=== PATIENT | female | born 1975 | race Caucasian/White ===

== ENCOUNTER 2022-10-30 10:55 | Outpatient (CLI) | payer OTHER, SELFPAY ==
--- NOTE | 2022-10-30 08:28 | W.ANESCHARGE ---
Anesthesia Charges Start Date/Time Anesthesia Start Date: 10/30/22 Anesthesia Start Time: 11:48 Stop Date/Time Anesthesia Stop Date: 10/30/22 Anesthesia Stop Time: 12:25
--- OUTSIDE RECORDS SUMMARY | 2022-10-30 10:59 | XMS_ITS ---
Author Name Khurramannette Robbie Address [address] [place] [address] Organization [facility] - Primary Address [address] [place] [address] Care Team Providers Care Office Workforce Planner Name Role Phone Robbie Mcfarland Unavailable [phone] PROBLEMS Type Condition ICD9-CM Code XAT40-BR Code Onset Dates Condition Status SNOMED Code Problem Post-traumatic stress disorder, chronic F43.12 Active 86941445 Problem Cervicalgia M54.2 Active 77530128 ALLERGIES Substance Reaction Event Type Date Status Ibu stomach upset Drug Allergy Sep, Active ENCOUNTERS Encounter Location Date Diagnosis [facility] [address] [facility] [address] [address] Sep, Post-traumatic stress disorder, chronic F43.12 and Cervicalgia M54.2 [facility] [place] [id number] Oct, Post-traumatic stress disorder, chronic F43.12 and Cervicalgia M54.2 [facility] [address] [place] [address] Apr, [facility] [place] [id number] Feb, Cervicalgia M54.2 and Post-traumatic stress disorder, chronic F43.12 IMMUNIZATIONS No Known Immunizations SOCIAL HISTORY Qualifiers Date Never Smoker REASON FOR REFERRAL FUNCTIONAL STATUS PLAN OF CARE Activity Details Follow Up 1 Year Reason: VITAL SIGNS Height 64 in 2019-02-27 Weight 147 lbs 2019-02-27 BMI 25.23 kg/m2 2019-02-27 MEDICATIONS Medication Instructions Dosage Frequency Start Date End Date Duration Status multivitamin Multiple Vitamins orally once a day 1 cap(s) 24h 30 day(s) Active Sudafed 30 mg orally PRN 1 tab(s) Active calcium carbonate 1250 mg orally once a day 1 tab(s) 24h Active Benadryl 25 mg orally PRN 1 cap(s) Active PROCEDURES No Known procedures RESULTS No Results REASON FOR VISIT Cannabis recert, PTSD, PTSD, PHONE recert, Medical cannabis , wellness check/consult, Insomnia, Anxiety, Bilat shoulders pain Insurance Providers Health Insurance Type Health Plan Insurance Address Health Plan Insurance Phone Health Plan Insurance Name Health Plan Coverage Dates Member ID Patient Relationship to Subscriber Patient Address Patient Phone Patient Name Patient Date of Subscriber ID Subscriber Name Subscriber Date of Group No [employer] [address] [place] [address] [employer] gina Felder [id number]
--- OUTSIDE RECORDS SUMMARY | 2022-10-30 10:59 | XMS_ITS | Patient Health Record ---
Author Name Unknown Organization [facility] Address [address] [place], [place] [id number] Care Team Providers Care Electroplater Name Role Phone BOWEN HO Primary Care Provider Eduardo miller [facility], Mammography Unavailable Unav ailable REASON FOR REFERRAL No Information SOCIAL HISTORY Sex Assigned At : Social History Observation Description Sex Assigned At Unknown Encounters Encounter Location Date Provider Diagnosis [facility] [address] [place], [place] [id number] 03/20/2022 Mammography [facility] Breast cancer screening Z12.31 ASSESSMENTS Encounter Date Diagnosis Assessment Notes Treatment Notes Treatment Clinical Notes 03/20/2022 Breast cancer screening (ICD-10 - Z12.31) PLAN OF TREATMENT Pending Test Test Name Order Date MAMMOGRAM 01/24/2021 MAMMOGRAM 03/20/2022 Insurance Providers Payer Name Payer Address Payer Phone Subscriber Number Group Number Insured Name Patient Relationship to Insured Coverage Start Date Coverage End Date [employer] (Ins. Bill) [address] [address] [place], [place] [id number] Wilian Felder Self - patient is the insured BC[employer] [address] [address] [place], [place] [id number] Wilian Felder Self - patient is the insured
--- NOTE | 2022-10-30 12:25 | W.ANESCHARGE ---
Anesthesia Charges Start Date/Time Anesthesia Start Date: 10/30/22 Anesthesia Start Time: 11:48 Stop Date/Time Anesthesia Stop Date: 10/30/22 Anesthesia Stop Time: 12:25
--- NOTE | 2022-10-30 12:27 | W.ANESCHARGE ---
Anesthesia Charges Start Date/Time Anesthesia Start Date: 10/30/22 Anesthesia Start Time: 11:48 Stop Date/Time Anesthesia Stop Date: 10/30/22 Anesthesia Stop Time: 12:25
== END 2022-10-30 10:56 | disposition home or self-care (01) ==
LOC: OP CLINIC 10:56
PROVIDERS: PCP Physician Assistant; Visit Provider Internal Medicine
DX: Z12.11 Encounter for screening for malignant neoplasm of colon (principal)
CPT/HCPCS: 00811; 00812; 45378; J2704

== ENCOUNTER 2023-11-29 11:16 | Outpatient (CLI) | payer OTHER, SELFPAY ==
--- OUTSIDE RECORDS SUMMARY | 2023-11-29 11:26 | XMS_ITS | Continuity of Care Document ---
Author Organization [facility] Address [address] [place] [address] Phone Care Team Providers Care Industrial Automation Engineer Name Role Phone Yasir PT, KATERYNA PT, Shelly AVENDAÑO Unavailable Un available Procedures Procedure Date Manual Therapy Therapeutic Procedure Neuromuscular Re-education Neuromuscular Re-education Therapeutic Procedure Neuromuscular Re-education Therapeutic Procedure Therapeutic Procedure Neuromuscular Re-education Therapeutic Procedure Manual Therapy Neuromuscular Re-education Phys Therap Eval Therapeutic Activities Medicare Falls Asses No Fall Advance Directives Directive Yes / No Effective Date File Name No Information Encounters Encounter Description Practice Location Reason(s) For Visit Diagnoses Date Provider Providers Copied on Encounter [facility], [address], [place], [place], [id number], [place] tel:[phone] Priscilla Jara [facility] 7390 No Information 6201 4 Yasir LEIJA, KATERYNA Bravo. [address], [address], [place], [place], [address], [place]. tel:[phone] Referring Provider: Geovanny Long MD, [address] [place], [address]. tel:[phone] 2845 [facility], [address], [place], [place], [address], [place] tel:[phone] [facility] 7390 No Information 4 Yasir PT, DPT Shelly. [address], [place], [place], [address], [place]. tel:[phone] Referring Provider: Geovanny Long MD, [address] [place], [address]. tel:[phone], [address], [place], [place], [address], [place] tel:[phone] [facility] 7390 No Information 4 Yasir PT, DPT Shelly. [address], [address], [place], [place], [address], [place]. tel:[phone] Referring Provider: Geovanny Long MD, [address] [place], [address]. tel:[phone], [address], [place], [place], [address], [place] tel:[phone] [facility] 7390 No Information 0 4 Yasir PT, DPT Shelly. [address], [address], [place], [place], [address], [place]. tel:[phone] Referring Provider: Geovanny Long MD, [address] [place], [address]. tel:[phone], [address], [place], [place], [address], [place] tel:[phone] [facility] 7390 No Information 4 Yasir PT, DPT Shelly. [address], [address], [place], [place], [address], [place]. tel:[phone] Referring Provider: Geovanny Long MD, [address] [place], [address]. tel:[phone] [facility], [address], [id number], [place] tel:[phone] [facility] 7390 No Information 4 Yasir PT, DPT Shelly. [address], [address], [place], [address], [place]. tel:[phone] Referring Provider: Geovanny Long MD, [address] [place], [address]. tel:[phone] [facility], [address] [facility] [address], [place], [address], [place] tel:[phone] [facility] 7390 No Information 4 Yasir PT, DPT Shelly. [address], [facility] [address], [place], [address], [place]. tel:[phone] Referring Provider: Geovanny Long MD, [address] [place], [address]. tel:[phone] Family History Family Member Type Diagnosis Age At Onset No Information Payers Payer name Insurance type Covered alliance party ID Nely man(s) [employer] - Commercial CI [id number] Social History Type Description Quantity Date Captured Comments Sex Female Smoking Status No Information Chief Complaint And Reason For Visit No Information Reason For Referral Reason For Referral No Information History Of Present Illness Encounter Date Complaint History Of Prese nt Illness No Information Functional Status Date Functional Assessmen t No Information Instructions Date Instruction Additional Infor mation No Information Assessments Type Assessment Date No Information Patient Care Teams Name Effective Dates (start - stop) Status Members No Information
== END 2023-11-29 11:17 | disposition home or self-care (01) ==
PROVIDERS: PCP Physician Assistant Medical; Visit Provider Physician Assistant Medical
DX: I10 Essential (primary) hypertension (principal); Z13.220 Encounter for screening for lipoid disorders; Z13.29 Encounter for screening for other suspected endocrine disorder
CPT/HCPCS: 80053; 80061; 82088; 84244; 84443

== ENCOUNTER 2023-12-22 13:38 | Outpatient (CLI) | payer OTHER, SELFPAY ==
--- OUTSIDE RECORDS SUMMARY | 2023-12-22 13:39 | XMS_ITS | Continuity of Care Document ---
Author Organization [facility] Address [address] [place] [address] Phone Care Team Providers Care Juvenile Corrections Officer Name Role Phone Yasir PT, KATERYNA PT, [...] Providers Copied on Encounter [facility], [address] [facility] [address], [place], [place], [address], [place] tel:[phone] [facility] 7390 No Information 201 4 Yasir LEIJA, KATERYNA Bravo. [address] [facility], [address], [place], [place], [address], [place]. tel:[phone] Referring Provider: Geovanny Long MD, [address] [place], [address]. tel:[phone] [facility], [address] [facility] [facility] [address], [place], [place], [address], [place] tel:[phone] [facility] 7390 No Information 4 Yasir PT, DPT Shelly. [address], [place], [place], [address], [place]. tel:[phone] Referring Provider: Geovanny Long MD, [address] [place], [address]. tel:[phone] [facility], [address], [place], [place], [address], [place] tel:[phone] [facility] 7390 No Information 4 Yasir PT, DPT Shelly. [address], [place], [place], [address], [place]. tel:[phone] Referring Provider: Geovanny Long MD, [address] [place], [address]. tel:[phone] [facility], [address], [place], [place], [address], [place] tel:[phone] [facility] 7390 No Information 0 4 Aysir PT, DPT Shlely. [address], [place], [place], [address], [place]. tel:[phone] Referring Provider: Geovanny Long MD, [address] [place], [address]. tel:[phone] [facility], [address], [place], [place], [address], [place] tel:[phone] [facility] 7390 No Information 4 Yasir PT, DPT Shelly. [address], [place], [place], [address], [place]. tel:[phone] Referring Provider: Geovanny Long MD, [address] [place], [address]. tel:[phone] [facility], [address], [id number], [place] tel:[phone] [facility] 7390 No Information 4 Yasir PT, DPT Shelly. [address] [facility], [address], [place], [address], [place]. tel:[phone] Referring Provider: Geovanny Long MD, [address] [place], [address]. tel:[phone] [facility], [address] [facility] [address], [place], [address], [place] tel:[phone] [facility] 7390 No Information 4 Yasir PT, DPT Shelly. [address] [facility], [facility] [address], [place], [address], [place]. tel:[phone] Referring Provider: Geovanny Long MD, [address] [place], [address]. tel:[phone] Family History Family Member Type Diagnosis Age At Onset No Information Payers Payer name Insurance type Covered democrat ID Nely man(s) [employer] - Commercial CI [id number] Social History Type Description Quantity Date Captured [...]
== END 2023-12-22 13:39 | disposition home or self-care (01) ==
LOC: LKVREF 13:38
PROVIDERS: PCP Physician Assistant Medical; Visit Provider Physician Assistant Medical
DX: R17 Unspecified jaundice; E87.1 Hypo-osmolality and hyponatremia
CPT/HCPCS: 80053

== ENCOUNTER 2025-03-12 10:04 | Outpatient (CLI) | payer OTHER, SELFPAY | END 2025-03-12 10:05 | disposition home or self-care (01) | LOC: LKVREF 10:07 | PROVIDERS: PCP Physician Assistant Medical; Visit Provider Physician Assistant Medical | DX: I10 Essential (primary) hypertension (principal) | CPT/HCPCS: 82043; 82570 ==